=== PATIENT | male | born 1995 ===

== ENCOUNTER 2017-07-09 11:27 | Emergency (ER) | payer OTHER ==
[2017-07-09 13:23] VITALS: BP 139/88
--- NOTE | 2017-07-09 13:37 | UC ---
HPI Wound/Suture Re-check - HPI Summary HPI Summary: 22 male presents to [facility] to have stitches removed. States he had osteoma removed about 8-9 days ago down in [facility]. Was told to have stitches removed since he is up here for college. No complaints or issues with sutures. No other complaints. No PMHx. - History Of Current Complaint Chief Complaint: [employer] Stated Complaint: STITCHES REMOVED Hx Obtained From: Patient Pain Intensity: 0 Pain Scale Used: 0-10 Numeric Procedure Type: stitches placed 9 days ago Surgery Date: 07/02/17 Head: 1 - 7 sutures - Allergies/Home Medications Allergies/Adverse Reactions: Allergies Allergy/AdvReac Type Severity Reaction Status Date / Time No Known Allergies Allergy Verified 07/09/17 13:23 PMH/Surg Hx/FS Hx/Imm Hx - Additional Past Medical History Additional PMH: Denies DM, HTN and asthma - Surgical History Surgical History: Yes Surgery Procedure, Year, and Place: REMOVAL OF OSTEOMA LEFT FOREHEAD - Family History Known Family History: Positive: None - Social History Alcohol Use: Weekly Substance Use Type: None Smoking Status (MU): Never Smoked Tobacco - Immunization History Vaccination Up to Date: Yes Review of Systems Constitutional: Negative Skin: Other - stitches removed Respiratory: Negative Cardiovascular: Negative Neurological: Negative All Other Systems Reviewed And Are Negative: Yes Physical Exam Triage Information Reviewed: Yes Appearance: Well-Appearing, No Pain Distress, Well-Nourished Vital Signs: Initial Vital Signs Temp 97.4 F 07/09/17 13:21 Pulse 69 07/09/17 13:21 Resp 14 07/09/17 13:21 BP 139/88 07/09/17 13:21 Vital Signs Reviewed: Yes Eyes: Positive: Conjunctiva Clear ENT: Positive: Normal ENT inspection, Hearing grossly normal, Pharynx normal Neck: Positive: Supple, Nontender, No Lymphadenopathy Respiratory: Positive: Chest non-tender, Lungs clear, Normal breath sounds, No respiratory distress, No accessory muscle use. Negative: Wheezing Cardiovascular: Positive: RRR, No Murmur, Pulses Normal Musculoskeletal: Positive: Strength Intact Neurological: Positive: Alert Skin: Positive: Other - 6 stitches present left forehead at hairline, removed without issue. no dishicense discharge edema or erythema noted Course/Dx - Course Course Of Treatment: stitches removed without complication. wound looked well approximated and nicely healed. no dehiscense or drainage. no erythema or signs of infection noted. patient tolerated procedure well. aware of worsening signs and symptoms. follow up if complication. continuse applying triple anitbiotic and keeping clean/dry - Differential Dx - Laceration/Wound Differential Diagnoses: Healing Wound, Suture Removal Provider Diagnoses: suture removal Discharge - Discharge Plan Condition: Stable Disposition: HOME Patient Education Materials: Stitches Removal (ED) Additional Instructions: continue applying triple antibiotic as directed. any complication please follow up with surgeon.
== END 2017-07-09 13:47 | disposition home or self-care (01) ==
LOC: UCCORT 11:27
DX: Z48.02 Encounter for removal of sutures (principal)
CPT/HCPCS: 99201; G0463